=== PATIENT | male | born 1960 | race Caucasian/White ===

== ENCOUNTER → 2016-09-21 | Outpatient (CLI) | payer OTHER ==
[~2016-09-21] MED LIST: ALPRAZOLAM0.5 MG PO; ASPIR 8181 MG PO; CARAFATE1 GM PO; CELEXA10 MG PO; DRISDOL; DURAGESIC 25 MCG1 EA TD; ENULOSE10 GM/15 M PO; FENOFIBRATE134 MG PO; FLEXERIL 10 MG10 MG PO; HYDROCODON-ACE1 EAC2 PO; HYDROXYZINE HCL10 MG PO; IBUPROFEN600 MG PO; IMDUR ER TAB 6060 MG PO; LIPITOR TAB 2020 MG PO; LISINOPRIL10 MG PO; LORTAB 7.5-3251 EACH PO; MELOXICAM15 MG PO; METOPROLOL SUCC25 MG PO; METOPROLOL TART25 MG PO; MORPHINE SULFAT60 M3 PO; NEURONTIN 100100 MG PO; NITROSTAT 0.40.4 MG SL; OMEPRAZOLE40 MG PO; PERCOCET 5-3251 EACH PO; PERCOCET 7.5-31 EACH PO; PHENERGAN 25 MG25 M1 PO; PLAVIX 75 MG TA75 MG PO; PLAVIX75 MG PO; POTASSIUM CHLO10 ME1 PO; PRILOSEC OTC20 MG PO; PROMACTA25 MG PO; SIMVASTATIN10 MG PO; TOPROL XL 25 MG25 MG PO; VENTOLIN/PROVE0.5 ML INH; VIT D PO; ZESTRIL10 MG PO; ZOCOR10 MG PO; ZOFRAN8 MG PO; [UNRECOGNIZED DRUG - OTHER] PO
== END ==
LOC: NM 08:00
DX: C34.01 Malignant neoplasm of right main bronchus (principal); C79.51 Secondary malignant neoplasm of bone; C77.1 Secondary and unspecified malignant neoplasm of intrathoracic lymph nodes; C78.7 Secondary malignant neoplasm of liver and intrahepatic bile duct
CPT/HCPCS: 78306; A9503

== ENCOUNTER → 2016-09-24 | Outpatient (CLI) | payer OTHER | LOC: CT 10:55 | DX: C34.01 Malignant neoplasm of right main bronchus (principal); C34.2 Malignant neoplasm of middle lobe, bronchus or lung; C79.51 Secondary malignant neoplasm of bone; C77.1 Secondary and unspecified malignant neoplasm of intrathoracic lymph nodes; C78.7 Secondary malignant neoplasm of liver and intrahepatic bile duct; R91.8 Other nonspecific abnormal finding of lung field | CPT/HCPCS: 71260; J7050; Q9962 ==

== ENCOUNTER → 2016-12-02 | Outpatient (CLI) | payer OTHER | LOC: MRI 11-23 14:00 | DX: C34.01 Malignant neoplasm of right main bronchus (principal); C79.51 Secondary malignant neoplasm of bone; C77.1 Secondary and unspecified malignant neoplasm of intrathoracic lymph nodes; C78.7 Secondary malignant neoplasm of liver and intrahepatic bile duct; M75.102 Unspecified rotator cuff tear or rupture of left shoulder, not specified as traumatic; M19.012 Primary osteoarthritis, left shoulder | CPT/HCPCS: 73223; A9577; J1642 ==

== ENCOUNTER → 2016-12-14 | Outpatient (CLI) | payer OTHER ==
[2016-12-14 11:28] LABS: HEMOGLOBIN 13.1 gm/dl (14.0-17.5); RED BLOOD COUNT 3.59 M/UL (4.20-5.50)
[2016-12-14 11:44] LABS: BUN/CREATININE RATIO 13 (0-10)
== END ==
LOC: LAB 10:20
PROVIDERS: Internal Medicine Hematology & Oncology
DX: C34.01 Malignant neoplasm of right main bronchus (principal); C79.51 Secondary malignant neoplasm of bone; C77.1 Secondary and unspecified malignant neoplasm of intrathoracic lymph nodes; C78.7 Secondary malignant neoplasm of liver and intrahepatic bile duct
CPT/HCPCS: 36415; 80053; 85025

== ENCOUNTER → 2016-12-31 | Outpatient (CLI) | payer OTHER ==
[2016-12-31 14:28] LABS: HEMOGLOBIN 13.4 gm/dl (14.0-17.5); RED BLOOD COUNT 3.66 M/UL (4.20-5.50); WHITE BLOOD COUNT 6.5 K/UL (4.5-11.0)
[2016-12-31 15:02] LABS: BUN/CREATININE RATIO 16 (0-10)
== END ==
LOC: OPSV2 13:00
PROVIDERS: Orthopaedic Surgery
DX: Z01.812 Encounter for preprocedural laboratory examination (principal); M75.102 Unspecified rotator cuff tear or rupture of left shoulder, not specified as traumatic; M75.42 Impingement syndrome of left shoulder
CPT/HCPCS: 36415; 80048; 85025

== ENCOUNTER → 2017-01-04 | Day surgery (SDC) | payer OTHER ==
[~2017-01-04] VITALS: Ht 175.3 cm; Wt 87.1 kg
== END | disposition home or self-care (01) ==
LOC: OR 01-01 09:45
PROVIDERS: Orthopaedic Surgery
PROC: 0PBB4ZZ Excision of Left Clavicle, Percutaneous Endoscopic Approach (ICD-10-PCS; 2017-01-04)
PROC: 0LQ24ZZ Repair Left Shoulder Tendon, Percutaneous Endoscopic Approach (ICD-10-PCS; principal; 2017-01-04 15:15)
PROC: 0RNK4ZZ Release Left Shoulder Joint, Percutaneous Endoscopic Approach (ICD-10-PCS; 2017-01-04 15:15)
DX: M75.102 Unspecified rotator cuff tear or rupture of left shoulder, not specified as traumatic (principal); M75.42 Impingement syndrome of left shoulder; M19.012 Primary osteoarthritis, left shoulder; M65.812 Other synovitis and tenosynovitis, left shoulder; J44.9 Chronic obstructive pulmonary disease, unspecified; I25.10 Atherosclerotic heart disease of native coronary artery without angina pectoris; I25.2 Old myocardial infarction; I11.0 Hypertensive heart disease with heart failure; I50.9 Heart failure, unspecified; I73.9 Peripheral vascular disease, unspecified; K21.9 Gastro-esophageal reflux disease without esophagitis; E78.5 Hyperlipidemia, unspecified; F17.210 Nicotine dependence, cigarettes, uncomplicated; Z85.118 Personal history of other malignant neoplasm of bronchus and lung; Z92.21 Personal history of antineoplastic chemotherapy; Z91.018 Allergy to other foods; Z79.82 Long term (current) use of aspirin; Z79.891 Long term (current) use of opiate analgesic; Z79.899 Other long term (current) drug therapy; Z79.02 Long term (current) use of antithrombotics/antiplatelets; Z95.5 Presence of coronary angioplasty implant and graft
CPT/HCPCS: 36600; 82803; 94664; J0171; J0690; J1100; J1642; J2250; J2405; J2795; J3010; J7120